=== PATIENT | male | born 1960 ===

== ENCOUNTER 2023-10-31 07:37 | Day surgery (SDC) | payer OTHER ==
[~2023-10-31] VITALS: Ht 177.8 cm; Wt 90.1 kg
[~2023-10-31 07:37] MED LIST: LR 1,000 ML IV SCH; Ondansetron 4 MG/2 ML VIAL IV PRN
[2023-10-31 07:53] VITALS: BP 131/93; PULSE 61; TEMP 97.5
[2023-10-31] MEDS ORDERED: FISH OIL 1000MG1 CAP PO (08:04)
[2023-10-31] MEDS ORDERED: COZAAR 50MG50 MG/TAB PO (08:04)
[2023-10-31] MEDS ORDERED: HCTZ 25MG TAB25 MG PO (08:05)
[2023-10-31] MEDS ORDERED: LIPITOR 40MG TA40 MG PO (08:05)
[2023-10-31 09:27] VITALS: BP 114/71; PULSE 63
--- NOTE | 2023-10-31 10:26 | NUR ---
0930- PATIENT RETURNS TO [facility] [place] [facility] VIA CART. PT AWAKE AND ALERT. RESPIRATIONS UNLABORED. AMBULATED TO RECLINER CHAIR WITH 2:1 SBA. PT DENIES NAUSEA OR ABDOMINAL PAIN. HOOKED UP TO MONITOR AND VS OBTAINED. CALL LIGHT AT SIDE. 0938- PATIENT TOLERATING SPRITE AND MUFFIN WITHOUT NAUSEA OR DIFFICULTY SWALLOWING. 0956- D/C INSTRUCTIONS REVIEWED WITH PATIENT. PT VERBALIZED UNDERSTANDING AND A COPY OF INSTRUCTIONS PROVIDED IN D/C FOLDER. 1008- PATIENT DRESSES SELF. 1016- DR. WESTBROOK IN ROOM SPEAKING WITH PATIENT. 1026- PATIENT DISCHARGED FROM UNIT VIA W/C TO A PERSONAL VEHICLE. PT LEFT HOSPITAL IN STABLE CONDITION.
== END 2023-10-31 10:26 | disposition home or self-care (01) ==
LOC: SDCO 07:37
DX: D12.2 Benign neoplasm of ascending colon (principal); K63.5 Polyp of colon; K21.00 Gastro-esophageal reflux disease with esophagitis, without bleeding; R10.9 Unspecified abdominal pain; R19.4 Change in bowel habit; K52.9 Noninfective gastroenteritis and colitis, unspecified; Z83.719 Family history of colon polyps, unspecified; Z80.0 Family history of malignant neoplasm of digestive organs; Z87.891 Personal history of nicotine dependence; Z79.899 Other long term (current) drug therapy; Z86.59 Personal history of other mental and behavioral disorders
CPT/HCPCS: J2704; J7120